=== PATIENT | male | born 1995 | race Caucasian/White ===

== ENCOUNTER 2020-05-05 13:43 | Inpatient (IN) | payer MEDICAID ==
[~2020-05-05] VITALS: Ht 167.6 cm; Wt 70.8 kg
[2020-05-05] MEDS ORDERED: HALOPERIDOL LACTATE 5 MG/ML VIAL IM ONE (14:15)
[2020-05-05] MEDS ORDERED: LORazepam 2 MG/ML VIAL IM ONE (14:15)
[2020-05-05] MEDS ORDERED: DiphenhydrAMINE HCL 50 MG/ML VIAL IM ONE (14:15)
[2020-05-05 15:14] LABS: BASOPHILS % (AUTO) 0.5 % (0.0-2.0); EOSINOPHILS % (AUTO) 1.6 % (1.0-6.0); HEMATOCRIT 41.9 % (41-53); HEMOGLOBIN 14.1 g/dL (13.5-17.5); MEAN CORPUSCULAR HEMOGLOBIN 30.6 pg (26.0-34.0); MEAN CORPUSCULAR HGB CONC 33.6 G/dL (31.0-37.0); MEAN CORPUSCULAR VOLUME 91 fL (80-100); MONOCYTES # (AUTO) 0.5 K/uL (0.1-1.0); MONOCYTES % (AUTO) 7.5 % (2.0-9.0); NEUTROPHILS # (AUTO) 4.1 K/uL (1.8-7.7); NEUTROPHILS % (AUTO) 60.4 % (40.0-70.0); PLATELET COUNT (AUTO) 316 K/uL (150-450); RED CELL DISTRIBUTION WIDTH 12.8 % (11.5-14.5)
[2020-05-05 15:16] LABS: COVID AG,FIA SOURCE NASOPHARYNGEAL
[2020-05-05 15:22] LABS: ANION GAP 12 mmol/L (8-16); CALCIUM, TOTAL 9.2 mg/dL (8.8-10.5); CARBON DIOXIDE 25 mmol/L (22-29); CHLORIDE 104 mmol/L (98-107); CREATININE 0.59 mg/dL (0.60-1.30); GLOMERULAR FILTR. RATE CALC > 60 mL/min (>60); GLUCOSE,RANDOM 138 mg/dL (70-110); POTASSIUM 3.5 mmol/L (3.5-5.1); SODIUM SERUM 141 mmol/L (136-145); UREA NITROGEN, BLOOD 19 mg/dL (7-18)
[2020-05-05 15:28] LABS: ALANINE AMINOTRANSFERASE 26 U/L (12-78); ALKALINE PHOSPHATASE 78 U/L (46-116); ASPARTATE AMINOTRANSFERASE 15 U/L (15-37); BILIRUBIN,TOTAL 0.9 mg/dL (0.1-1.0); TOTAL PROTEIN, SERUM 6.9 g/dL (6.4-8.2)
[2020-05-05] MEDS ORDERED: HALOPERIDOL 5 MG TABLET PO PRN (22:30)
[2020-05-05] MEDS ORDERED: ZOLPIDEM TARTRATE 10 MG TABLET PO PRN (22:30)
[2020-05-06] MEDS ORDERED: INFLUENZA VIRUS VACCINE QVS 2020-21 (6MO+)/PF 60 MCG/0.5 ML SYRINGE IM ONE (00:30)
[2020-05-06 06:29] VITALS: BP 127/50
[2020-05-06] MEDS ORDERED: DOCUSATE SODIUM 100 MG CAPSULE PO PRN (09:00)
[2020-05-06] MEDS ORDERED: IBUPROFEN 400 MG TABLET PO PRN (09:00)
[2020-05-06] MEDS ORDERED: ALBUTEROL SULFATE HFA 90 MCG/PUFF 8 GM INHALER IH PRN (09:00)
[2020-05-06] MEDS ORDERED: PETROLATUM,WHITE 28 GM JELLY TP PRN (09:00)
[2020-05-06] MEDS ORDERED: MAGNESIUM HYDROXIDE SUSPENSION 30 ML UDCUP PO PRN (09:00)
[2020-05-06] MEDS ORDERED: NICOTINE 14 MG/24 HOUR PATCH TD PRN (09:00)
[2020-05-06] MEDS ORDERED: CloNIDine HCL 0.1 MG TABLET PO PRN (09:00)
[2020-05-06] MEDS ORDERED: ONDANSETRON HCL 4 MG TABLET PO PRN (09:00)
[2020-05-06] MEDS ORDERED: ACETAMINOPHEN 325 MG TABLET PO PRN (09:00)
[2020-05-06] MEDS ORDERED: LOPERAMIDE HCL 2 MG CAPSULE PO PRN (09:00)
[2020-05-06] MEDS ORDERED: GuaiFENesin/D-METHORPHAN [SUGAR-FREE] 200-20MG/10 ML SYRUP UDCUP PO PRN (09:00)
[2020-05-06] MEDS ORDERED: MAG HYDROX/AL HYDROX/SIMETH ES 30 ML SUSPENSION UDCUP PO PRN (09:00)
[2020-05-06 10:31] VITALS: BP 117/71
[2020-05-06 16:32] VITALS: BP 100/49
[2020-05-06] MEDS: OLANZapine 5 MG TABLET PO SCH (16:52)
[2020-05-07 04:42] VITALS: BP 107/62
[2020-05-07] MEDS: OLANZapine 5 MG TABLET PO SCH ×2 (09:45→17:12)
[2020-05-07] MEDS: TERBINAFINE HCL 1% 30 GM CREAM TP SCH ×2 (10:30→17:00)
[2020-05-07 13:07] VITALS: BP 119/78
[2020-05-07 16:21] VITALS: BP 116/63
[2020-05-08 05:21] VITALS: BP 119/74
[2020-05-08 08:16] VITALS: BP 116/65
[2020-05-08] MEDS: OLANZapine 5 MG TABLET PO SCH ×2 (09:22→17:17)
[2020-05-08] MEDS: TERBINAFINE HCL 1% 30 GM CREAM TP SCH ×2 (09:22→17:18)
[2020-05-08 16:25] VITALS: BP 103/62
[2020-05-08] MEDS: LORazepam 2 MG TABLET PO PRN (17:18)
[2020-05-09 08:16] VITALS: BP 114/70
[2020-05-09] MEDS: OLANZapine 5 MG TABLET PO SCH ×2 (08:50→17:11)
[2020-05-09] MEDS: TERBINAFINE HCL 1% 30 GM CREAM TP SCH ×2 (09:00→17:11)
[2020-05-09] MEDS: LORazepam 2 MG TABLET PO PRN (14:14)
[2020-05-09 16:20] VITALS: BP 101/61
[2020-05-10 08:12] VITALS: BP 114/67
[2020-05-10] MEDS: OLANZapine 5 MG TABLET PO SCH (09:32)
[2020-05-10] MEDS: TERBINAFINE HCL 1% 30 GM CREAM TP SCH (09:37)
[2020-05-10] MEDS ORDERED: OLAN5TAB2 PO (11:53)
== END 2020-05-10 13:40 | disposition home or self-care (01) | DRG 751 ==
LOC: EMS 13:43 → B3A 18:16
PROVIDERS: ADMIT Psychiatry & Neurology Psychiatry; ATTEND Psychiatry & Neurology Psychiatry
DX: F29 Unspecified psychosis not due to a substance or known physiological condition (principal); Z59.0 Homelessness; N17.9 Acute kidney failure, unspecified; R73.9 Hyperglycemia, unspecified; I10 Essential (primary) hypertension; R45.850 Homicidal ideations; F19.10 Other psychoactive substance abuse, uncomplicated; Z20.822 Contact with and (suspected) exposure to COVID-19; Z28.21 Immunization not carried out because of patient refusal
CPT/HCPCS: 87426; 90686; G0480; J1200; J1630; J2060

== ENCOUNTER 2020-09-27 12:55 | Emergency (ER) | payer MEDICAID ==
[~2020-09-27] VITALS: Ht 170.2 cm; Wt 68.2 kg
[~2020-09-27 12:55] MED LIST: OLAN5TAB52 PO
[2020-09-27 13:12] LABS: COVID AG,FIA SOURCE NASOPHARYNGEAL
[2020-09-27 14:27] VITALS: BP 130/84
[2020-09-27] MEDS ORDERED: OLANZapine 5 MG TABLET PO ONE (16:00)
== END 2020-09-27 17:42 | disposition home or self-care (01) ==
LOC: EMS 14:00
DX: F20.9 Schizophrenia, unspecified (principal); Z20.822 Contact with and (suspected) exposure to COVID-19; F17.210 Nicotine dependence, cigarettes, uncomplicated; F15.90 Other stimulant use, unspecified, uncomplicated; Z79.899 Other long term (current) drug therapy
CPT/HCPCS: 87426; 99285; C9803; Z7502; Z7610

== ENCOUNTER 2021-03-17 14:42 | Emergency (ER) | payer MEDICAID ==
[~2021-03-17] VITALS: Ht 165.1 cm; Wt 68.2 kg
[2021-03-17 18:18] VITALS: BP 130/87
== END 2021-03-17 18:57 | disposition home or self-care (01) ==
LOC: EMS 14:42
DX: F25.9 Schizoaffective disorder, unspecified (principal); F15.988 Other stimulant use, unspecified with other stimulant-induced disorder; F17.290 Nicotine dependence, other tobacco product, uncomplicated
CPT/HCPCS: 99285

== ENCOUNTER 2021-06-05 22:50 | Inpatient (IN) | payer MEDICAID ==
[~2021-06-05] VITALS: Ht 167.6 cm; Wt 73.0 kg
[2021-06-05 23:32] LABS: AMPHET/METH SCREEN,URINE POSITIVE (NEGATIVE); BARBITURATE SCREEN, URINE NEGATIVE (NEGATIVE); BENZODIAZEPINES SCREEN,URINE NEGATIVE (NEGATIVE); CANNABINOID SCREEN,URINE NEGATIVE (NEGATIVE); COCAINE SCREEN,URINE NEGATIVE (NEGATIVE); METHADONE SCREEN, URINE NEGATIVE (NEGATIVE); OPIATE SCREEN,URINE NEGATIVE (NEGATIVE)
[2021-06-05 23:34] LABS: PHENCYCLIDINE SCREEN,URINE NEGATIVE (NEGATIVE)
[2021-06-05 23:35] LABS: COVID AG,FIA SOURCE NASAL SWAB
[2021-06-05 23:38] LABS: BASOPHILS % (AUTO) 0.5 % (0.0-2.0); EOSINOPHILS % (AUTO) 1.1 % (1.0-6.0); HEMATOCRIT 44.4 % (41-53); HEMOGLOBIN 15.2 g/dL (13.5-17.5); LYMPHOCYTES # (AUTO) 2.4 K/uL (1.0-4.8); LYMPHOCYTES % (AUTO) 17.2 % (22.0-44.0); MEAN CORPUSCULAR HEMOGLOBIN 30.7 pg (26.0-34.0); MEAN CORPUSCULAR HGB CONC 34.3 G/dL (31.0-37.0); MEAN CORPUSCULAR VOLUME 90 fL (80-100); MONOCYTES # (AUTO) 0.7 K/uL (0.1-1.0); MONOCYTES % (AUTO) 4.9 % (2.0-9.0); NEUTROPHILS # (AUTO) 10.8 K/uL (1.8-7.7); NEUTROPHILS % (AUTO) 76.3 % (40.0-70.0); PLATELET COUNT (AUTO) 374 K/uL (150-450); RED BLOOD CELL COUNT(AUTO) 4.95 MIL/uL (4.50-5.90); RED CELL DISTRIBUTION WIDTH 12.7 % (11.5-14.5)
[2021-06-05 23:49] LABS: ANION GAP 10 mmol/L (8-16); CALCIUM, TOTAL 9.8 mg/dL (8.8-10.5); CARBON DIOXIDE 29 mmol/L (22-29); CHLORIDE 100 mmol/L (98-107); CREATININE 0.85 mg/dL (0.60-1.30); GLOMERULAR FILTR. RATE CALC > 60 mL/min (>60); GLUCOSE,RANDOM 109 mg/dL (70-110); POTASSIUM 4.1 mmol/L (3.5-5.1); SODIUM SERUM 139 mmol/L (136-145); UREA NITROGEN, BLOOD 16 mg/dL (7-18)
[2021-06-05 23:55] LABS: ALANINE AMINOTRANSFERASE 34 U/L (12-78); ALBUMIN 4.7 g/dL (3.4-5.0); ALKALINE PHOSPHATASE 93 U/L (46-116); ASPARTATE AMINOTRANSFERASE 25 U/L (15-37); BILIRUBIN,TOTAL 0.9 mg/dL (0.1-1.0); TOTAL PROTEIN, SERUM 8.4 g/dL (6.4-8.2)
[2021-06-06] MEDS ORDERED: ZOLPIDEM TARTRATE 10 MG TABLET PO PRN (01:00)
[2021-06-06] MEDS ORDERED: HALOPERIDOL 5 MG TABLET PO PRN (01:00)
[2021-06-06 03:20] VITALS: BP 112/71
[2021-06-06] MEDS ORDERED: INFLUENZA VIRUS VACCINE QVS 2021-22 (6MO+)/PF 60 MCG/0.5 ML SYRINGE IM. ONE (03:45)
[2021-06-06 08:24] VITALS: BP 109/67
[2021-06-06] MEDS ORDERED: IBUPROFEN 400 MG TABLET PO PRN (09:30)
[2021-06-06] MEDS ORDERED: ACETAMINOPHEN 325 MG TABLET PO PRN (09:30)
[2021-06-06] MEDS ORDERED: LOPERAMIDE HCL 2 MG CAPSULE PO PRN (09:30)
[2021-06-06] MEDS ORDERED: CloNIDine HCL 0.1 MG TABLET PO PRN (09:30)
[2021-06-06] MEDS ORDERED: ONDANSETRON HCL 4 MG TABLET PO PRN (09:30)
[2021-06-06] MEDS ORDERED: DOCUSATE SODIUM 100 MG CAPSULE PO PRN (09:30)
[2021-06-06] MEDS ORDERED: GuaiFENesin/D-METHORPHAN [SUGAR-FREE] 200-20MG/10 ML SYRUP UDCUP PO PRN (09:30)
[2021-06-06] MEDS ORDERED: ALBUTEROL SULFATE HFA 90 MCG/PUFF 8 GM INHALER IH PRN (09:30)
[2021-06-06] MEDS ORDERED: NICOTINE 14 MG/24 HOUR PATCH TD PRN (09:30)
[2021-06-06] MEDS ORDERED: MAG HYDROX/AL HYDROX/SIMETH ES 30 ML SUSPENSION UDCUP PO PRN (09:30)
[2021-06-06] MEDS ORDERED: PETROLATUM,WHITE 28 GM JELLY TP PRN (09:30)
[2021-06-06] MEDS ORDERED: MAGNESIUM HYDROXIDE SUSPENSION 30 ML UDCUP PO PRN (09:30)
[2021-06-06] MEDS: OLANZapine 5 MG TABLET PO SCH ×2 (12:08→16:59)
[2021-06-06 16:14] VITALS: BP 103/62
[2021-06-07 04:11] VITALS: BP 110/64
[2021-06-07 08:24] VITALS: BP 108/62
[2021-06-07] MEDS: OLANZapine 5 MG TABLET PO SCH ×2 (08:43→17:00)
[2021-06-07 16:21] VITALS: BP 130/86
[2021-06-08 05:55] VITALS: BP 112/66
[2021-06-08 08:30] VITALS: BP 138/74
[2021-06-08] MEDS: OLANZapine 5 MG TABLET PO SCH ×2 (08:31→16:45)
[2021-06-08 16:21] VITALS: BP 111/74
[2021-06-09 02:49] VITALS: BP 124/69
[2021-06-09 08:36] VITALS: BP 122/72
[2021-06-09] MEDS: OLANZapine 5 MG TABLET PO SCH ×2 (09:31→17:04)
[2021-06-09] MEDS: LORazepam 2 MG TABLET PO PRN ×2 (09:31→17:05)
[2021-06-09 16:18] VITALS: BP 118/70
[2021-06-10 03:24] VITALS: BP 117/67
[2021-06-10 08:11] VITALS: BP 118/72
[2021-06-10] MEDS: OLANZapine 5 MG TABLET PO SCH (09:03)
[2021-06-10] MEDS: LORazepam 2 MG TABLET PO PRN (09:03)
[2021-06-10] MEDS ORDERED: OLAN5TAB52 PO (10:32)
== END 2021-06-10 13:00 | disposition home or self-care (01) | DRG 750 ==
LOC: EMS 22:55 → B3A 06-06 01:00
PROVIDERS: ADMIT Psychiatry & Neurology Child & Adolescent Psychiatry; ATTEND Psychiatry & Neurology Child & Adolescent Psychiatry
DX: F20.0 Paranoid schizophrenia (principal); G93.40 Encephalopathy, unspecified; Z87.891 Personal history of nicotine dependence; F15.10 Other stimulant abuse, uncomplicated; D72.829 Elevated white blood cell count, unspecified; F41.9 Anxiety disorder, unspecified; Z20.822 Contact with and (suspected) exposure to COVID-19; Z79.899 Other long term (current) drug therapy
CPT/HCPCS: 80053; 85025; 99285; G0480

== ENCOUNTER 2021-12-10 14:53 | Inpatient (IN) | payer MEDICAID ==
[~2021-12-10] VITALS: Ht 165.1 cm; Wt 68.2 kg
[2021-12-10 15:41] LABS: COVID AG,FIA SOURCE NASAL SWAB
[2021-12-10 15:52] LABS: AMPHET/METH SCREEN,URINE POSITIVE (NEGATIVE); BARBITURATE SCREEN, URINE NEGATIVE (NEGATIVE); BENZODIAZEPINES SCREEN,URINE NEGATIVE (NEGATIVE); CANNABINOID SCREEN,URINE NEGATIVE (NEGATIVE); COCAINE SCREEN,URINE NEGATIVE (NEGATIVE); METHADONE SCREEN, URINE NEGATIVE (NEGATIVE); OPIATE SCREEN,URINE NEGATIVE (NEGATIVE)
[2021-12-10 15:53] LABS: PHENCYCLIDINE SCREEN,URINE NEGATIVE (NEGATIVE)
[2021-12-10] MEDS ORDERED: LORazepam 2 MG TABLET PO PRN ×2 (16:15→21:00)
[2021-12-10] MEDS ORDERED: ZOLPIDEM TARTRATE 10 MG TABLET PO PRN ×2 (16:15→21:00)
[2021-12-10] MEDS ORDERED: OLANZapine 5 MG RAPDIS TABLET PO PRN ×2 (16:15→21:00)
[2021-12-10 20:35] VITALS: BP 115/62
[2021-12-10] MEDS ORDERED: MAGNESIUM HYDROXIDE SUSPENSION 30 ML UDCUP PO PRN (21:00)
[2021-12-10] MEDS ORDERED: GuaiFENesin/D-METHORPHAN [SUGAR-FREE] 200-20MG/10 ML SYRUP UDCUP PO PRN (21:00)
[2021-12-10] MEDS ORDERED: MAG HYDROX/AL HYDROX/SIMETH ES 30 ML SUSPENSION UDCUP PO PRN (21:00)
[2021-12-10] MEDS: MELATONIN 5 MG TABLET PO SCH (21:00)
[2021-12-10] MEDS ORDERED: TUBERCULIN, PURIFIED PROTEIN DERIVATIVE 5 TU/0.1 ML SYRINGE ID ONE (21:00)
[2021-12-10] MEDS ORDERED: ACETAMINOPHEN 325 MG TABLET PO PRN (21:00)
[2021-12-10] MEDS ORDERED: HydrOXYzine PAMOATE 50 MG CAPSULE PO PRN (21:00)
[2021-12-10] MEDS ORDERED: PROMETHAZINE HCL 25 MG TABLET PO PRN (21:00)
[2021-12-10] MEDS ORDERED: LOPERAMIDE HCL 2 MG CAPSULE PO PRN (21:00)
[2021-12-10] MEDS ORDERED: PNEUMOCOCCAL VACCINE POLYVALENT 0.5 ML VIAL [PPSV23] IM. ONE (22:00)
[2021-12-11 04:45] VITALS: BP 115/62
[2021-12-11 08:36] VITALS: BP 110/58
[2021-12-11] MEDS: MULTIVITAMINS WITH MINERALS, THERAPEUTIC TABLET PO SCH (09:00)
[2021-12-11] MEDS: OMEGA-3/DHA/EPA/FISH OIL 1,000 MG CAPSULE PO SCH (09:00)
[2021-12-11] MEDS: OLANZapine 5 MG RAPDIS TABLET PO SCH ×3 (09:00→16:28)
[2021-12-11] MEDS: NALTREXONE HCL 50 MG TABLET PO SCH (09:00)
[2021-12-11] MEDS: FOLIC ACID 1 MG TABLET PO SCH (09:00)
[2021-12-11] MEDS ORDERED: PALIPERIDONE PALMITATE 234 MG/1.5 ML SYRINGE IM ONE (09:00)
[2021-12-11] MEDS: THIAMINE 100 MG TABLET PO SCH ×2 (09:00→16:27)
[2021-12-11 20:23] VITALS: BP 109/57
[2021-12-11] MEDS: MELATONIN 5 MG TABLET PO SCH (20:26)
[2021-12-12] MEDS: FOLIC ACID 1 MG TABLET PO SCH (09:00)
[2021-12-12] MEDS: OLANZapine 5 MG RAPDIS TABLET PO SCH ×3 (09:00→17:00)
[2021-12-12] MEDS: NALTREXONE HCL 50 MG TABLET PO SCH (09:00)
[2021-12-12] MEDS: OMEGA-3/DHA/EPA/FISH OIL 1,000 MG CAPSULE PO SCH (09:00)
[2021-12-12] MEDS: THIAMINE 100 MG TABLET PO SCH ×2 (09:00→17:00)
[2021-12-12] MEDS: MULTIVITAMINS WITH MINERALS, THERAPEUTIC TABLET PO SCH (09:00)
[2021-12-12 20:14] VITALS: BP 101/65
[2021-12-12] MEDS: MELATONIN 5 MG TABLET PO SCH (20:45)
[2021-12-13] MEDS: OMEGA-3/DHA/EPA/FISH OIL 1,000 MG CAPSULE PO SCH (08:03)
[2021-12-13] MEDS: OLANZapine 5 MG RAPDIS TABLET PO SCH ×3 (08:04→17:00)
[2021-12-13] MEDS: NALTREXONE HCL 50 MG TABLET PO SCH (08:04)
[2021-12-13] MEDS: THIAMINE 100 MG TABLET PO SCH ×2 (08:04→17:00)
[2021-12-13] MEDS: MULTIVITAMINS WITH MINERALS, THERAPEUTIC TABLET PO SCH (08:04)
[2021-12-13] MEDS: FOLIC ACID 1 MG TABLET PO SCH (08:04)
[2021-12-13 08:27] VITALS: BP 101/65
[2021-12-13 20:13] VITALS: BP 110/60
[2021-12-13] MEDS: MELATONIN 5 MG TABLET PO SCH (21:00)
[2021-12-14 04:45] VITALS: BP 118/72
[2021-12-14] MEDS: FOLIC ACID 1 MG TABLET PO SCH (08:27)
[2021-12-14] MEDS: OLANZapine 5 MG RAPDIS TABLET PO SCH (08:27)
[2021-12-14] MEDS: MULTIVITAMINS WITH MINERALS, THERAPEUTIC TABLET PO SCH (08:27)
[2021-12-14] MEDS: OMEGA-3/DHA/EPA/FISH OIL 1,000 MG CAPSULE PO SCH (08:27)
[2021-12-14] MEDS: NALTREXONE HCL 50 MG TABLET PO SCH (08:27)
[2021-12-14] MEDS: THIAMINE 100 MG TABLET PO SCH (08:27)
[2021-12-14] MEDS ORDERED: MELA5TAB40 PO (09:37)
[2021-12-14] MEDS ORDERED: NALT50TA PO (09:37)
[2021-12-14] MEDS ORDERED: OLAN5TAB94 PO (09:37)
[2021-12-14] MEDS ORDERED: OMEG-135 PO (09:37)
[2021-12-14 09:40] VITALS: BP 124/70
[2021-12-15] MEDS ORDERED: PALIPERIDONE PALMITATE 156 MG/ML SYRINGE IM ONE (09:00)
== END 2021-12-14 11:40 | disposition home or self-care (01) | DRG 750 ==
LOC: EMS 14:53 → B3A 16:53
PROVIDERS: ADMIT Psychiatry & Neurology Psychiatry; ATTEND Psychiatry & Neurology Psychiatry
DX: F20.9 Schizophrenia, unspecified (principal); Z91.19 Patient's noncompliance with other medical treatment and regimen; F17.210 Nicotine dependence, cigarettes, uncomplicated; Z20.822 Contact with and (suspected) exposure to COVID-19; Z55.9 Problems related to education and literacy, unspecified; Z59.02 Unsheltered homelessness; Z63.9 Problem related to primary support group, unspecified; Z65.3 Problems related to other legal circumstances
CPT/HCPCS: Q9967